=== PATIENT | female | born 1985 | race Caucasian/White ===

== ENCOUNTER 2017-11-03 08:14 | Observation (INO) | payer MEDICAID ==
[2017-11-03 08:35] LABS: ADD MAN DIFF? NO
[2017-11-03] MEDS: ACETAMINOPHEN 500 MG TAB PO (08:37)
[2017-11-03 08:39] LABS: WHITE BLOOD COUNT 15.8 10^3/ul (4.8-10.8)
[2017-11-03 08:39] LABS: BASOPHIL # 0.1 10^3/ul (0.0-0.1); BASOPHILS % 0.4 % (0.0-2.0); EOSINOPHILS # 0.1 10^3/ul (0.0-0.5); EOSINOPHILS % 0.8 % (0.0-7.0); HEMATOCRIT 34.8 % (37.0-47.0); HEMOGLOBIN 11.6 g/dl (12.0-16.0); IMMATURE GRANS #M 0.08 10^3/ul; IMMATURE GRANS % (M) 0.5 %; LYMPHOCYTES # 1.7 10^3/ul (0.8-2.9); LYMPHOCYTES % 10.6 % (15.0-51.0); MEAN CORPUSCULAR HEMOGLOBIN 28.1 pg (29.0-33.0); MEAN CORPUSCULAR HGB CONC 33.3 g/dl (32.0-37.0); MEAN CORPUSCULAR VOLUME 84.3 fl (82.0-101.0); MEAN PLATELET VOLUME 11.1 fl (7.4-10.4); MONOCYTE # 0.7 10^3/ul (0.3-0.9); MONOCYTES % 4.5 % (0.0-11.0); NEUTROPHIL # 13.1 10^3/ul (1.6-7.5); NEUTROPHILS % 83.2 % (39.0-77.0); PLATELET COUNT 266 10^3/UL (140-415); RED BLOOD COUNT 4.13 10^6/ul (4.20-5.40)
[2017-11-03] MEDS: morphine 4 MG/ML VIAL IV ×2 (08:41→10:56)
[2017-11-03] MEDS: SOD CHLORIDE 0.9% 1,000 ML IV ×2 (08:44→10:05)
[2017-11-03 09:06] LABS: ALANINE AMINOTRANSFERASE 15 IU/L (13-69); ALBUMIN 3.9 g/dl (3.3-4.9); ALBUMIN/GLOBULIN RATIO 1.18; ALKALINE PHOSPHATASE 66 IU/L (42-121); ANION GAP 10 (8-16); ASPARTATE AMINO TRANSFERASE 17 IU/L (15-46); BILIRUBIN,INDIRECT 0.3 mg/dl (0-1.1); BILIRUBIN,TOTAL 0.3 mg/dl (0.2-1.3); BLOOD UREA NITROGEN 10 mg/dl (7-20); CALCIUM 9.2 mg/dl (8.4-10.2); CARBON DIOXIDE 25 mmol/L (21-31); CHLORIDE 109 mmol/L (97-110); CREATININE 0.58 mg/dl (0.44-1.00); GLUCOSE 121 mg/dl (70-220); POTASSIUM 3.4 mmol/L (3.5-5.1); SODIUM 141 mmol/L (135-144); TOTAL PROTEIN 7.2 g/dl (6.1-8.1)
[2017-11-03] MEDS: HYDROmorphONE 1 MG/ML SYG IV (09:58)
[2017-11-03 10:01] LABS: ADD MAN DIFF? NO
[2017-11-03 10:05] LABS: BASOPHILS % 0.2 % (0.0-2.0); EOSINOPHILS # 0.1 10^3/ul (0.0-0.5); EOSINOPHILS % 0.6 % (0.0-7.0); HEMATOCRIT 29.5 % (37.0-47.0); HEMOGLOBIN 9.9 g/dl (12.0-16.0); IMMATURE GRANS #M 0.07 10^3/ul; IMMATURE GRANS % (M) 0.4 %; LYMPHOCYTES # 1.5 10^3/ul (0.8-2.9); LYMPHOCYTES % 9.1 % (15.0-51.0); MEAN CORPUSCULAR HEMOGLOBIN 28.8 pg (29.0-33.0); MEAN CORPUSCULAR HGB CONC 33.6 g/dl (32.0-37.0); MEAN CORPUSCULAR VOLUME 85.8 fl (82.0-101.0); MEAN PLATELET VOLUME 11.1 fl (7.4-10.4); MONOCYTE # 0.7 10^3/ul (0.3-0.9); MONOCYTES % 4.3 % (0.0-11.0); NEUTROPHIL # 13.8 10^3/ul (1.6-7.5); NEUTROPHILS % 85.4 % (39.0-77.0); PLATELET COUNT 238 10^3/UL (140-415); RED BLOOD COUNT 3.44 10^6/ul (4.20-5.40)
[2017-11-03 10:05] LABS: WHITE BLOOD COUNT 16.1 10^3/ul (4.8-10.8)
[2017-11-03] MEDS ORDERED: ONDANSETRON 4 MG INJ IV ×3 (11:00→16:00)
[2017-11-03] MEDS ORDERED: ACETAMINOPHEN 325 MG TAB PO ×2 (11:00→16:00)
[2017-11-03] MEDS ORDERED: CEFAZOLIN 1 GM INJ (11:25)
[2017-11-03] MEDS ORDERED: MIDAZOLAM 1 MG/ML 2 ML INJ (11:25)
[2017-11-03] MEDS ORDERED: FENTAnyl 50 MCG/ML VIAL (11:25)
[2017-11-03] MEDS ORDERED: ETOMIDATE 20 MG INJ (11:25)
[2017-11-03] MEDS ORDERED: METOCLOPRAMIDE 10 MG INJ (11:26)
[2017-11-03] MEDS ORDERED: ONDANSETRON 4 MG INJ (11:37)
[2017-11-03] MEDS ORDERED: HYDROmorphONE 1 MG/5 ML IV SYRINGE IV ×3 (12:30)
[2017-11-03 12:44] LABS: ADD MAN DIFF? NO
[2017-11-03 12:46] LABS: WHITE BLOOD COUNT 15.8 10^3/ul (4.8-10.8)
[2017-11-03 12:46] LABS: BASOPHIL # 0.1 10^3/ul (0.0-0.1); BASOPHILS % 0.4 % (0.0-2.0); EOSINOPHILS # 0.1 10^3/ul (0.0-0.5); EOSINOPHILS % 0.8 % (0.0-7.0); HEMATOCRIT 26.9 % (37.0-47.0); HEMOGLOBIN 8.9 g/dl (12.0-16.0); IMMATURE GRANS #M 0.06 10^3/ul; IMMATURE GRANS % (M) 0.4 %; LYMPHOCYTES # 2.2 10^3/ul (0.8-2.9); LYMPHOCYTES % 14.1 % (15.0-51.0); MEAN CORPUSCULAR HGB CONC 33.1 g/dl (32.0-37.0); MEAN CORPUSCULAR VOLUME 87.6 fl (82.0-101.0); MEAN PLATELET VOLUME 11.6 fl (7.4-10.4); MONOCYTE # 0.8 10^3/ul (0.3-0.9); MONOCYTES % 4.8 % (0.0-11.0); NEUTROPHIL # 12.6 10^3/ul (1.6-7.5); NEUTROPHILS % 79.5 % (39.0-77.0); PLATELET COUNT 246 10^3/UL (140-415); RED BLOOD COUNT 3.07 10^6/ul (4.20-5.40); RED CELL DISTRIBUTION WIDTH 13.2 % (11.5-14.5)
[2017-11-03] MEDS: ONDANSETRON 4 MG INJ IV (13:10)
[2017-11-03] MEDS ORDERED: DOCUSATE SODIUM 100 MG CAP PO (16:00)
[2017-11-03] MEDS ORDERED: NACL 0.9% 3 ML SYG IV (16:00)
[2017-11-03] MEDS ORDERED: ZOLPIDEM 5 MG TAB PO (16:00)
[2017-11-03] MEDS: NS + KCL 20 MEQ 1,000 ML IV (17:47)
[2017-11-03] MEDS: morphine 2 MG INJ IV (17:52)
[2017-11-03] MEDS: HYDROCODONE/APAP (5/325) TAB PO (19:43)
[2017-11-03 23:11] LABS: ADD UMIC YES; UR ASCORBIC ACID NEGATIVE (NEGATIVE); UR BILIRUBIN (Dip) NEGATIVE (NEGATIVE); UR BLOOD (Dip) 3+ mg/dL (NEGATIVE); UR CLARITY CLOUDY (CLEAR); UR COLOR AMBER (YELLOW); UR GLUCOSE (Dip) 2+ mg/dL (NEGATIVE); UR KETONES (Dip) NEGATIVE (NEGATIVE); UR LEUKOCYTE ESTERASE (Dip) NEGATIVE Leu/ul (NEGATIVE); UR MUCUS FEW /HPF (NONE SEEN); UR NITRITE (Dip) NEGATIVE (NEGATIVE); UR RBC > 182 /HPF (0-5); UR SPECIFIC GRAVITY (Dip) 1.024 (1.003-1.030); UR SQUAMOUS EPITHELIAL CELL FEW /HPF (FEW); UR TOTAL PROTEIN (Dip) 2+ mg/dl (NEGATIVE); UR UROBILINOGEN (Dip) NEGATIVE (NEGATIVE); UR WBC > 182 /HPF (0-5)
[2017-11-04] MEDS: NS + KCL 20 MEQ 1,000 ML IV (05:26)
[2017-11-04 07:55] LABS: ADD MAN DIFF? NO
[2017-11-04 08:01] LABS: ABNORMAL IP MESSAGE 1; BASOPHILS % 0.5 % (0.0-2.0); EOSINOPHILS # 0.4 10^3/ul (0.0-0.5); EOSINOPHILS % 6.7 % (0.0-7.0); HEMATOCRIT 18.9 % (37.0-47.0); LYMPHOCYTES # 2.7 10^3/ul (0.8-2.9); MEAN CORPUSCULAR HEMOGLOBIN 29.4 pg (29.0-33.0); MEAN CORPUSCULAR HGB CONC 33.9 g/dl (32.0-37.0); MEAN CORPUSCULAR VOLUME 86.7 fl (82.0-101.0); MEAN PLATELET VOLUME 11.5 fl (7.4-10.4); MONOCYTE # 0.2 10^3/ul (0.3-0.9); MONOCYTES % 3.9 % (0.0-11.0); NEUTROPHIL # 2.8 10^3/ul (1.6-7.5); NEUTROPHILS % 45.6 % (39.0-77.0); PLATELET COUNT 185 10^3/UL (140-415); RED BLOOD COUNT 2.18 10^6/ul (4.20-5.40)
[2017-11-04 08:01] LABS: WHITE BLOOD COUNT 6.2 10^3/ul (4.8-10.8)
[2017-11-04 08:15] LABS: POSITIVE DIFF @See below
[2017-11-04 08:18] LABS: HEMOGLOBIN 6.4 g/dl (12.0-16.0); PATH REVIEW? YES
[2017-11-04 08:39] LABS: ANION GAP 8 (8-16); BLOOD UREA NITROGEN 5 mg/dl (7-20); CALCIUM 7.6 mg/dl (8.4-10.2); CARBON DIOXIDE 22 mmol/L (21-31); CHLORIDE 112 mmol/L (97-110); CREATININE 0.49 mg/dl (0.44-1.00); GLUCOSE 88 mg/dl (70-220); MAGNESIUM 1.7 mg/dl (1.7-2.5); PHOSPHORUS 2.9 mg/dl (2.5-4.9); POTASSIUM 3.4 mmol/L (3.5-5.1); SODIUM 139 mmol/L (135-144)
[2017-11-04 09:26] LABS: HEMOGLOBIN A1C 5.7 % (0-5.9)
[2017-11-04] MEDS ORDERED: SOD CHLORIDE 0.9% 250 ML IV* (09:42)
[2017-11-04] MEDS: HYDROCODONE/APAP (5/325) TAB PO (09:47)
[2017-11-04 09:52] LABS: ANISOCYTOSIS 1+ (0-0); BAND NEUTROPHILS #M 0.1 10^3/ul (0.0-0.6); BAND NEUTROPHILS % (M) 2 % (0-4); BASOPHILS % (M) 1 % (0-2); EOSINOPHILS % (M) 7 % (0-7); LYMPHOCYTES % (M) 33 % (15-51); MONOCYTE #M 0.1 10^3/ul (0.3-0.9); MONOCYTES % (M) 3 % (0-11); PLATELET ESTIMATE NORMAL; SEG NEUT #M 3.4 10^3/ul (1.6-7.5); SEGMENTED NEUTROPHILS (M) % 54 % (39-77); SMUDGE%M 23 % (0-0)
[2017-11-04] MEDS: POTASSIUM CHLORIDE (SR) 20 MEQ TAB PO (11:15)
[2017-11-04] MEDS: morphine 2 MG INJ IV (11:15)
== END 2017-11-04 14:50 | disposition home or self-care (01) ==
LOC: FTE 08:14 → SDS 11:21 → 2NE 13:40
DX: O03.4 Incomplete spontaneous abortion without complication (principal); E87.6 Hypokalemia
CPT/HCPCS: 36415; 76801; 80048; 80053; 81001; 83036; 83735; 84100; 84702; 85025; 86850; 86900; 86901; 86920; 88305; 96361; 96374; 96375; 99217; 99285-25